=== PATIENT | male | born 1970 | race Caucasian/White ===

== ENCOUNTER 2021-11-13 09:34 | Emergency (ER) | payer SELFPAY ==
[2021-11-13 09:37] VITALS: BP 160/90; PULSE 88; RESP 16; TEMP 37.3; O2SAT 98
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
[2021-11-13] MEDS: Bacitracin 30 GM TUBE TP (10:18)
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
== END 2021-11-13 10:23 | disposition home or self-care (01) ==
PROVIDERS: Emergency Provider Registered Nurse Emergency
DX: T23.262A Burn of second degree of back of left hand, initial encounter (principal); T20.29XA Burn of second degree of multiple sites of head, face, and neck, initial encounter; X00.0XXA Exposure to flames in uncontrolled fire in building or structure, initial encounter
CPT/HCPCS: 99282; 99283

== ENCOUNTER 2024-11-26 15:40 | Inpatient (IN) | payer MEDICAID, SELFPAY ==
[2024-11-26] VITALS (39 sets, daily range): BP systolic 107–173; BP diastolic 69–91; PULSE 43–92; RESP 13–30; TEMP 36.6–38.7; O2SAT 93–99
--- NOTE | 2024-11-26 15:45 | DI.RAD_ITS ---
Exam(s) XR CHEST 2V PA LATERAL EXAM: XR CHEST 2V PA LATERAL CLINICAL HISTORY: fever, SOB. TECHNIQUE: 2D digital imaging was performed. COMPARISON: Prior chest x-ray March 2017 FINDINGS: 2 views: Heart size is normal. The mediastinum is not widened. Mild increased markings noted in the right lower lobe. No pleural effusions. IMPRESSION: Subtle increased markings right lower lobe. May indicate early infiltrate. There are no pleural eff usions. DATA REPOSITORY: RADIATION DOSE DELIVERED:
--- NOTE | 2024-11-26 16:00 | RT.EKG_ITS ---
APPROVED REPORT Exam: Resting ECG Reason for Exam: SOB Patient Location: E HR:86 bpm ECG Measurements Heart Rate 86 AXIS NV 168 P 65 QRSd 91 QRS 73 QT 335 T -75 QTc 400 Conclusion Sinus rhythm at a rate of 86 with wanderling leads and nonspecific ST change without acute ischemic c hange.
--- NOTE | 2024-11-26 16:05 | W.ED.GENAD ---
Discharge Plan Disposition Patient Disposition: Admit to [facility] Condition: Stable Discharge Details Chief Complaint: Dizzy/Sync Clinical Impression: Flu, Pneumonia Primary Care Provider: Nica,Local ED Provider: Maite Dale Home Meds and New Rx's Prescriptions: No Action No Known Home Meds HPI General Date/Time Provider Initiated Documentation: 11/26/24 15:51. HPI Narrative: The patient is a 54-year-old male with history of inguinal hernia who comes the emergency department for fever, cough, shortness of breath. The patient reports that he has been sick since Wednesday or Wednesday with vomiting and diarrhea. Reports multiple people around him has been sick with similar symptoms. Admits that he has had a fever with this also and has been taking NyQuil last dose was taken last night. Admits that his appetite is back to normal and in fact had a large meal earlier today. Admits that today he has had worsening symptom with shortness of breath and nonproductive cough so his sister called 911. Reports that he has chest pain when he is coughing with his ribs feeling like they are going to explode. He denies abdominal pain with this. Admits that he is a daily smoker. Per EMS the patient was febrile and tachycardic upon their arrival. The patient was found to have low oxygen saturation at 88% on room air. He was given a DuoNeb treatment and started on IV Solu-Medrol. Related Data Home Medications ?Medication ?Instructions ?Recorded ?Confirmed Unknown [No Known Home Meds] 11/13/21 11/26/24 Allergies Allergy/AdvReac Type Severity Reaction Status Date / Time meperidine (From Demerol) AdvReac Unknown Unverified 11/26/24 15:45 General Stated Complaint: Dizzy/Sync AIMEE: 2 Review of Systems Narrative: Review of systems are negative except as mentioned. Exam Const General: cooperative and no acute distress Orientation: alert, awake and oriented x3 HENMT Other: Oral mucosal membranes are moist. Eyes Other: Pupils are round, equal and reactive. Resp Other: Patient has equal lung sounds with mild expiratory wheezes bilaterally which clear upon coughing. Cardio Rate: regular rate Rhythm: regular rhythm Pulses: radial pulses present GI Palpation: soft and nontender Auscultation: normal bowel sounds Skin Other: Skin is warm and flushed but dry. Extrem Other: No calf tenderness or lower extremity edema noted bilaterally. Course Vital Signs Vital signs: Vital Signs Temperature 38.7 C H 11/26/24 15:32 Pulse 92 H 11/26/24 15:32 Respiratory Rate 28 H 11/26/24 15:32 Blood Pressure 173/81 H 11/26/24 15:32 Pulse Oximetry 94 11/26/24 15:32 Temperature 38.7 C H 11/26/24 15:32 Temperature Source Tympanic 11/26/24 15:32 Pulse 92 H 11/26/24 15:32 Respiratory Rate 28 H 11/26/24 15:32 Blood Pressure 173/81 H 11/26/24 15:32 Pulse Oximetry 94 11/26/24 15:32 Oxygen Delivery Method Room Air 11/26/24 15:32 Oxygen Flow Rate 0 11/26/24 15:32 End Tidal Co2 20 11/26/24 15:32 Lab/Test Results Lab/Test Results: 11/26/24 15:58 Blood Blood Culture - Pending 11/26/24 15:50 Blood Blood Culture - Pending Medical Decision Making Septic workup has been started on this patient. I talked the patient about Tylenol and ibuprofen but he declined the Tylenol but agreed to the ibuprofen. The patient's lactic acid was resulted and it was elevated so I ordered sepsis fluid bolus. The patient's blood counts are unremarkable. VBG is overall benign. Chemistry shows electrolyte abnormality and elevation of liver enzymes. The patient is getting IV fluids now and in regards to liver enzymes this is likely secondary to daily consumption of 6-8 beers. The patient tested positive for influenza A however because he is he has been symptomatic since Wednesday he is not appropriate for Tamiflu anymore. In the meantime supplemental oxygen has been weaned off and patient is resting comfortably on room air at 94%. Chest x-ray is back and there is concern for pneumonia so I started patient on IV antibiotics. Given overall clinical picture I informed the patient and his sisters of my recommendation for hospitalization at this point and they agree. Imaging Data Radiologic Study: Imaging: X-Ray (Chest x-ray) Radiologist's impression: V-rad: 1. There is parahilar peribronchial thickening, nonspecific but commonly seen in the setting of acute or chronic bronchitis and/or in the setting of a viral infection. 2. Moderate-sized region of increased opacity in the right lower lobe. Crowding of bronchial/vascular structures or an region of pulmonary consolidation could have this appearance. Clinical correlation is recommended to exclude a region of consolidated pneumonia or aspiration. ECG Data Attestation: I personally reviewed and interpreted this ECG (s) as follows: (Sinus rhythm at a rate of 86 with wanderling leads and nonspecific ST change without acute ischemic change.) Quality:SDOH Health Related Social Needs: No Data to Display PFSH All Active Problems (Updated 11/26/24 @ 20:01 by Maite Dale DO) Pneumonia (Acute) Flu (Acute) Inguinal hernia of right side with obstruction (Acute) Surgical History Repair of inguinal hernia WITH BOWEL RESECTION;04/12 Hemicolectomy RIGHT 04/12 Family History Mother No problems noted. Father No problems noted. Grandfather No problems noted. Grandfather No problems noted. Grandmother No problems noted. Grandmother No problems noted. Social History Smoking/Tobacco Use Status: Current every day Tobacco Type: cigarettes Smoking risk assessment performed?: Yes Alcohol Intake: current Alcohol Intake frequency: 0-2 drinks per day Alcohol type: beer Drug use: Never Substance use type: does not use Do you feel safe at home: Yes Do you feel safe in your relationship?: Yes
[2024-11-26 16:07] LABS: Abs Immature Grans 0.06 10^3/uL (0.0-0.06); Absolute Basophil Count 0.02 10^3/uL (0.0-0.2); Absolute Lymphocyte Count 0.59 10^3/uL (1.2-3.4); Absolute Monocyte Count 0.89 10^3/uL (0.1-0.8); Absolute Neutrophil Count 6.35 10^3/uL (1.2-6.7); Basophils % 0.3 %; HGB 14.6 g/dL (13.5-17.5); Immature Grans % 0.8 %; Lymphocytes % 7.5 %; MCH 31.4 pg (27.0-33.0); MCV 93 fL (80-95); MPV 8.9 fL (8.0-11.0); Monocytes % 11.3 %; Neutrophils % 80.1 %; Platelet Count 133 10^3/uL (130-400); RBC 4.65 10^6/uL (4.36-5.78); RDW 13.3 % (11.8-14.1); RDW-SD 45.5 fL; WBC 7.91 10^3/uL (4.4-10.8)
[2024-11-26 16:08] LABS: Lactate 4.8 mmol/L (<or=2.0)
[2024-11-26] MEDS: Ibuprofen 800 MG TAB PO (16:24)
[2024-11-26] MEDS: Normal Saline 1,000 ML 1000 ML IV ×2 (16:24→17:30)
[2024-11-26 16:25] LABS: BE (Venous) -5 mmol/L (-2-3); HCO3 (Venous) 21 mmol/L (23-28); O2 Sat (Venous) 53 %; TCO2 (Venous) 19 mmol/L (24-29); pCO2 (Venous) 37 mmHg (41-51); pH (Venous) 7.35 (7.31-7.41); pO2 (Venous) 31 mmHg
[2024-11-26 16:28] LABS: ALT 500 U/L (16-63); AST 580 U/L (15-37); Albumin 3.9 g/dL (3.4-5.0); Alkaline Phosphatase 147 U/L (46-116); BUN 11 mg/dL (7-18); Bilirubin, Total 0.28 mg/dL (0.2-1.0); CREATININE 1.1 mg/dL (0.70-1.30); Calcium 9.2 mg/dL (8.5-10.1); Chloride 89 mmol/L (98-107); Estimated GFR 79.28 (mL/min/1.73m2); Glucose 128 mg/dL (74-106); Potassium 3.2 mmol/L (3.5-5.1); Sodium 128 mmol/L (136-145); Total Protein 8.4 g/dL (6.4-8.2); Troponin I 22 ng/L (<or=76)
[2024-11-26 16:35] LABS: Procalcitonin 1.04 ng/mL
[2024-11-26 17:03] LABS: COVID-19 PCR Negative (Negative); Influenza A PCR Positive (Negative); Influenza B PCR Negative (Negative); RSV PCR Negative (Negative)
[2024-11-26 17:05] LABS: Source Nasopharynx
[2024-11-26 17:16] LABS: Troponin I 19 ng/L (<or=76)
--- NOTE | 2024-11-26 17:39 | DI.VRAD_ITS ---
PROCEDURE INFORMATION: Exam: XR Chest Exam date and time: 11/26/2024 4:21 PM Age: 54 years old Clinical indication: Fever and shortness of breath TECHNIQUE: Imaging protocol: Radiologic exam of the chest. Views: 2 views. COMPARISON: No relevant prior studies available. FINDINGS: Lungs: There is parahilar peribronchial thickening. There is increased opacity in the right lower lobe. Pleural spaces: No pleural effusion or pneumothorax is demonstrated. Heart/Mediastinum: The heart appears normal in size. Bones/joints: The visualized bony structures appear grossly intact, as seen. There are osteophytes along the thoracic spinal margin. IMPRESSION: 1. There is parahilar peribronchial thickening, nonspecific but commonly seen in the setting of acute or chronic bronchitis and/or in the setting of a viral infection. 2. Moderate-sized region of increased opacity in the right lower lobe. Crowding of bronchial/vascular structures or an region of pulmonary consolidation could have this appearance. Clinical correlation is recommended to exclude a region of consolidated pneumonia or aspiration. Dictated and Authenticated by: Vasquez Coe MD. Orderin Chito Arora MD
[2024-11-26] MEDS: cefTRIAXone 1 GM/50 ML BAG IVPB (18:25)
[2024-11-26 18:37] LABS: ETHANOL BLOOD 71.5 mg/dL (<10)
[2024-11-26 18:38] LABS: Bilirubin Negative (Negative); Blood Trace-lysed (Negative); Clarity Clear (Clear); Glucose Negative (Negative); Ketones Negative (Negative); Leukocyte Esterase Negative (Negative); Nitrite Negative (Negative); Urobilinogen 0.2 mg/dL (Up to 0.2); pH 5.5 (5-8)
--- NOTE | 2024-11-26 18:41 | W.PM.HP.N ---
Date of service: 11/26/24 Time of Service: 18:42 Assessment and Plan Assessment and plan (1) Flu: Status: Acute Assessment and plan: Flu, with possible bacterial superinfection. Will cover with Rocephin and Zithro, and check Legionella urinary antigen. As above, this far into the illness the Tamiflu will not be indicated. 1. Flu: supportive care 2. Pneumonia: dual abx as above 3. COPD: prn updrafts: 4. Hyponatremia: NS, trend Na 5. LFTS: probable EtOH, but question atypical respiratory infection (viz, Legionella); no signs synthetic dysfunction (normal albumen and bili): trend TAs 6. EtOH: high risk withdrawal. Will initiate Phenobarb protocol, check EtOH level History of Present Illness History of Present Illness Chief Complaint: cough Narrative: 54 male smoker, unvaccinated against flu, h/o EtOH abuse, multiple family members sick -- here with five days of cough, nausea, diarrhea, SOB. EMS report o2 sat 88% in field, received Solumedrol and Duoneb. Here in ER findings of note for o2 sats mid 90s RA, temp to 38.7, + flu swab, CXR perihilar peribronchial thickening (?viral) plus possible RLL infiltrate. Lactate 4.8, Na 128, TAs 500s with normal Bili. Patient given IVF, Rocephin and Zithro. Given that he was five days out he was not started on Tamiflu. I was asked to blanca for admission. Patient states he drinks 10-12 beer/day, last drink around lunch time. States he has had withdrawal in past, including possible seizures and possible DTs (though he does not seem to be quite sure what either of these are). States he is feeling improved though not back to baseline. Review of Systems Narrative: per HPI PFSH All Active Problems (Updated 11/26/24 @ 18:50 by Josesito López MD) Flu (Acute) Inguinal hernia of right side with obstruction (Acute) Surgical History Repair of inguinal hernia WITH BOWEL RESECTION;04/12 Hemicolectomy RIGHT 04/12 Family History Mother No problems noted. Father No problems noted. Grandfather No problems noted. Grandfather No problems noted. Grandmother No problems noted. Grandmother No problems noted. Social History Smoking/Tobacco Use Status: Current every day Tobacco Type: cigarettes Smoking risk assessment performed?: Yes Alcohol Intake: current Alcohol Intake frequency: 0-2 drinks per day Alcohol type: beer Drug use: Never Substance use type: does not use Do you feel safe at home: Yes Do you feel safe in your relationship?: Yes Meds Allergies and Home Medications Allergies Allergy/AdvReac Type Severity Reaction Status Date / Time meperidine (From Demerol) AdvReac Unknown Unverified 11/26/24 15:45 Home Medications ?Medication ?Instructions ?Recorded ?Confirmed ?Type Unknown [No Known Home Meds] 11/13/21 11/26/24 History Exam Narrative Exam Narrative: 173/81, 92, 38.7 max (currently afebrile), 16, 94% RA. HEENT profusely sweating on forehead; neck supple; lungs few scattered wheeze; heart RRR; abdomen soft and NT w/o HSM' extremities w/o edema; neuro Ox3, resting tremor, moves all 4s Results Labs 11/26/24 15:50 11/26/24 15:50 Labs: Laboratory Results - last 24 hr 11/26/24 11/26/24 11/26/24 15:32 15:50 16:20 WBC 7.91 RBC 4.65 Hgb 14.6 Hct 43.0 MCV 93 MCH 31.4 MCHC 34.0 RDW 13.3 Plt Count 133 MPV 8.9 Immature Gran % 0.8 Neutrophils % 80.1 Lymphocytes % 7.5 Monocytes % 11.3 Eosinophils % 0.0 Basophils % 0.3 Nucleated RBC % 0.0 Absolute Neutrophils 6.35 Absolute Lymphocytes 0.59 L Absolute Monocytes 0.89 H Absolute Eosinophils 0.00 Absolute Basophils 0.02 VBG pH 7.35 VBG pCO2 37 L VBG pO2 31 VBG HCO3 21 L VBG Total CO2 19 L VBG O2 Saturation 53 VBG Base Excess -5 L VBG Lactate 4.8 H* Sodium 128 L Potassium 3.2 L Chloride 89 L Carbon Dioxide 21.0 Anion Gap 18.0 H BUN 11 Creatinine 1.1 Est GFR (CKD-EPI 2020) 79.28 Glucose 128 H Calcium 9.2 Total Bilirubin 0.28 AST 580 H ALT 500 H Alkaline Phosphatase 147 H Troponin I 22 Total Protein 8.4 H Albumin 3.9 Procalcitonin 1.04 Urine Color Urine Clarity Urine pH Ur Specific [place] Urine Protein Urine Ketones Urine Blood Urine Nitrite Urine Bilirubin Urine Urobilinogen Ur Leukocyte Esterase Urine Glucose COVID-19 Source Nasopharynx SARS-CoV-2 (PCR) Negative Influenza Type A (PCR) Positive A Influenza Type B (PCR) Negative RSV (PCR) Negative 11/26/24 11/26/24 16:50 18:30 WBC RBC Hgb Hct MCV MCH MCHC RDW Plt Count MPV Immature Gran % Neutrophils % Lymphocytes % Monocytes % Eosinophils % Basophils % Nucleated RBC % Absolute Neutrophils Absolute Lymphocytes Absolute Monocytes Absolute Eosinophils Absolute Basophils VBG pH VBG pCO2 VBG pO2 VBG HCO3 VBG Total CO2 VBG O2 Saturation VBG Base Excess VBG Lactate Sodium Potassium Chloride Carbon Dioxide Anion Gap BUN Creatinine Est GFR (CKD-EPI 2020) Glucose Calcium Total Bilirubin AST ALT Alkaline Phosphatase Troponin I 19 Total Protein Albumin Procalcitonin Urine Color Yellow Urine Clarity Clear Urine pH 5.5 Ur Specific [place] 1.010 Urine Protein 100 H Urine Ketones Negative Urine Blood Trace-lysed H Urine Nitrite Negative Urine Bilirubin Negative Urine Urobilinogen 0.2 Ur Leukocyte Esterase Negative Urine Glucose Negative COVID-19 Source SARS-CoV-2 (PCR) Influenza Type A (PCR) Influenza Type B (PCR) RSV (PCR) Last Vital Signs Temp 38.7 C H 11/26/24 16:24 Pulse 92 H 11/26/24 15:32 Resp 16 11/26/24 18:22 BP 173/81 H 11/26/24 15:32 Pulse Ox 94 11/26/24 15:32 PAWSS Have you Been Recently Intoxicated or Drunk Within the Last 30 days?: No Have you Ever Experienced Previous Episodes of Alcohol Withdrawal?: No Have you ever Experienced Withdrawal Seizures?: No Have you ever Experienced Delirium Tremens(DT)s?: No Have you ever undergone Alcohol Rehabilitation Treatment (i.e, inpt ot outpatient treatment programs)?: No Have you ever Experienced Blackouts?: No Have you ever Combined Alcohol with other Downers within the last 90 days?: No Have you ever Combined Alcohol with any other Substance of Abuse during the last 90 days?: No Result: 0 Time Spent Time spent with Patient: 55-74 minutes Time was spent: preparing to see the patient(eg.review tests), obtaining and/or reviewing separately otained hiistory, ordering medications,tests, procedures, referring, communicating with other health aged or disabled care worker and indepentently interpreting results
[2024-11-26 18:51] LABS: Bacteria Rare HPF (Negative); C & S Indicated? No; Casts 0-2 Hyaline LPF (Negative); Crystals Negative HPF (Negative); Epithelial Cells Rare HPF (Negative); Mucus Negative (Negative); RBC 0-2 HPF (0-2); WBC 0-2 HPF (0-5)
[2024-11-26] MEDS: AZITHROMYCIN 500 MG in Normal Saline 250 ML 250 MG IVPB (18:59)
[2024-11-26 19:05] LABS: Lactate 1.6 mmol/L (<or=2.0)
[2024-11-26 19:28] LABS: Troponin I 20 ng/L (<or=76)
--- NOTE | 2024-11-26 20:11 | W.PC.ACHO ---
Registration Status: Primary Language: Preferred Language: ED Information & Data Chief Complaint Dizzy/Sync 11/26/24 16:07 Triage Note after lunch became lethargic 11/26/24 15:32 and confused and dizzy, c/o diff breathing, N/V/D x1 wk 88% RA, 101.4, increased work of breathing, wheezes, EMS arrival received 125 solu, Duoneb x2, NS Fluids started. (Last Reviewed 11/26/24 @ 18:48 by Josesito López MD) Repair of inguinal hernia Hemicolectomy Most Recent Vital Signs Temperature 36.9 C 11/26/24 18:41 Temperature Source Oral 11/26/24 18:41 Pulse 62 11/26/24 20:00 Pulse 61 11/26/24 20:00 Respiratory Rate 17 11/26/24 20:00 Respiratory Effort Normal, Non-Labored 11/26/24 18:22 Respiratory Depth Normal 11/26/24 18:22 Respiratory Pattern Normal 11/26/24 19:05 Blood Pressure 156/71 H 11/26/24 15:46 Blood Pressure Mean 96 11/26/24 15:46 Pulse Oximetry 99 11/26/24 20:00 Respiratory End-tidal CO2 24 11/26/24 17:10 Oxygen Delivery Method Room Air 11/26/24 15:32 Oxygen Flow Rate 0 11/26/24 15:32 End Tidal Co2 20 11/26/24 15:32 Allergies meperidine (From Demerol) Adverse Reaction (Unverified 11/26/24 15:45) Unknown unknown Precautions Isolation PUI 11/26/24 16:06 IV IV Catheter Type [Right Peripheral IV Forearm] IV Catheter Gauge [Right 20 Forearm] Diet Orders Category Date Time Status Regular/Normal [DIET] Nutrition 11/27/24 Breakfast Ordered Diagnostics 11/26/24 11/26/24 11/26/24 Range/Units 18:59 18:30 16:50 WBC (4.4-10.8) 10^3/uL RBC (4.36-5.78) 10^6/uL Hgb (13.5-17.5) g/dL Hct (40.0-50.0) % MCV (80-95) fL MCH (27.0-33.0) pg MCHC (32.0-36.0) % RDW (11.8-14.1) % Plt Count (130-400) 10^3/uL MPV (8.0-11.0) fL Immature Gran % % Neutrophils % % Lymphocytes % % Monocytes % % Eosinophils % % Basophils % % Nucleated RBC % (0.0-0.3) % Absolute Neutrophils (1.2-6.7) 10^3/uL Absolute Lymphocytes (1.2-3.4) 10^3/uL Absolute Monocytes (0.1-0.8) 10^3/uL Absolute Eosinophils (0.0-0.7) 10^3/uL Absolute Basophils (0.0-0.2) 10^3/uL VBG pH (7.31-7.41) VBG pCO2 (41-51) mmHg VBG pO2 mmHg VBG HCO3 (23-28) mmol/L VBG Total CO2 (24-29) mmol/L VBG O2 Saturation % VBG Base Excess (-2-3) mmol/L VBG Lactate 1.6 (<or=2.0) mmol/L Sodium (136-145) mmol/L Potassium (3.5-5.1) mmol/L Chloride (98-107) mmol/L Carbon Dioxide (21.0-32.0) mmol/L Anion Gap (3-11) mmol/L BUN (7-18) mg/dL Creatinine (0.70-1.30) mg/dL Est GFR (CKD-EPI 2020) (mL/min/1.73m2) Glucose (74-106) mg/dL Calcium (8.5-10.1) mg/dL Total Bilirubin (0.2-1.0) mg/dL AST (15-37) U/L ALT (16-63) U/L Alkaline Phosphatase (46-116) U/L Troponin I 20 19 (<or=76) ng/L Total Protein (6.4-8.2) g/dL Albumin (3.4-5.0) g/dL Procalcitonin ng/mL Urine Color Yellow (Yellow) Urine Clarity Clear (Clear) Urine pH 5.5 (5-8) Ur Specific [place] 1.010 (1.005-1.025) Urine Protein 100 H (Neg-Trace) mg/dL Urine Ketones Negative (Negative) mg/dL Urine Blood Trace-lysed H (Negative) Urine Nitrite Negative (Negative) Urine Bilirubin Negative (Negative) Urine Urobilinogen 0.2 (Up to 0.2) mg/dL Ur Leukocyte Esterase Negative (Negative) Urine RBC 0-2 (0-2) HPF Urine WBC 0-2 (0-5) HPF Ur Epithelial Cells Rare (Negative) HPF Urine Crystals Negative (Negative) HPF Urine Bacteria Rare (Negative) HPF Urine Casts 0-2 Hyaline (Negative) LPF Urine Mucus Negative (Negative) Ur Culture Indicated? No Urine Glucose Negative (Negative) mg/dL Ethyl Alcohol (<10) mg/dL COVID-19 Source SARS-CoV-2 (PCR) (Negative) Influenza Type A (PCR) (Negative) Influenza Type B (PCR) (Negative) RSV (PCR) (Negative) 11/26/24 11/26/24 11/26/24 Range/Units 16:20 15:50 15:32 WBC 7.91 (4.4-10.8) 10^3/uL RBC 4.65 (4.36-5.78) 10^6/uL Hgb 14.6 (13.5-17.5) g/dL Hct 43.0 (40.0-50.0) % MCV 93 (80-95) fL MCH 31.4 (27.0-33.0) pg MCHC 34.0 (32.0-36.0) % RDW 13.3 (11.8-14.1) % Plt Count 133 (130-400) 10^3/uL MPV 8.9 (8.0-11.0) fL Immature Gran % 0.8 % Neutrophils % 80.1 % Lymphocytes % 7.5 % Monocytes % 11.3 % Eosinophils % 0.0 % Basophils % 0.3 % Nucleated RBC % 0.0 (0.0-0.3) % Absolute Neutrophils 6.35 (1.2-6.7) 10^3/uL Absolute Lymphocytes 0.59 L (1.2-3.4) 10^3/uL Absolute Monocytes 0.89 H (0.1-0.8) 10^3/uL Absolute Eosinophils 0.00 (0.0-0.7) 10^3/uL Absolute Basophils 0.02 (0.0-0.2) 10^3/uL VBG pH 7.35 (7.31-7.41) VBG pCO2 37 L (41-51) mmHg VBG pO2 31 mmHg VBG HCO3 21 L (23-28) mmol/L VBG Total CO2 19 L (24-29) mmol/L VBG O2 Saturation 53 % VBG Base Excess -5 L (-2-3) mmol/L VBG Lactate 4.8 H* (<or=2.0) mmol/L Sodium 128 L (136-145) mmol/L Potassium 3.2 L (3.5-5.1) mmol/L Chloride 89 L (98-107) mmol/L Carbon Dioxide 21.0 (21.0-32.0) mmol/L Anion Gap 18.0 H (3-11) mmol/L BUN 11 (7-18) mg/dL Creatinine 1.1 (0.70-1.30) mg/dL Est GFR (CKD-EPI 2020) 79.28 (mL/min/1.73m2) Glucose 128 H (74-106) mg/dL Calcium 9.2 (8.5-10.1) mg/dL Total Bilirubin 0.28 (0.2-1.0) mg/dL AST 580 H (15-37) U/L ALT 500 H (16-63) U/L Alkaline Phosphatase 147 H (46-116) U/L Troponin I 22 (<or=76) ng/L Total Protein 8.4 H (6.4-8.2) g/dL Albumin 3.9 (3.4-5.0) g/dL Procalcitonin 1.04 ng/mL Urine Color (Yellow) Urine Clarity (Clear) Urine pH (5-8) Ur Specific [place] (1.005-1.025) Urine Protein (Neg-Trace) mg/dL Urine Ketones (Negative) mg/dL Urine Blood (Negative) Urine Nitrite (Negative) Urine Bilirubin (Negative) Urine Urobilinogen (Up to 0.2) mg/dL Ur Leukocyte Esterase (Negative) Urine RBC (0-2) HPF Urine WBC (0-5) HPF Ur Epithelial Cells (Negative) HPF Urine Crystals (Negative) HPF Urine Bacteria (Negative) HPF Urine Casts (Negative) LPF Urine Mucus (Negative) Ur Culture Indicated? Urine Glucose (Negative) mg/dL Ethyl Alcohol 71.5 H (<10) mg/dL COVID-19 Source Nasopharynx SARS-CoV-2 (PCR) Negative (Negative) Influenza Type A (PCR) Positive A (Negative) Influenza Type B (PCR) Negative (Negative) RSV (PCR) Negative (Negative) 11/26/24 15:58 Blood Culture - Pending Blood 11/26/24 15:50 Blood Culture - Pending Blood Intake and Output - 24 Hour Total 11/26/24 15:26 thru 11/26/24 19:00 Intake Total 2049 Balance 2049 Weight 71.1 kg Intake: IV 2049 Falls Risk Assessment History of Falls No History 11/26/24 16:07 Fall Total Score 0 11/26/24 16:07 Level of Risk Standard/Low Risk 11/26/24 16:07 Problems (Last Reviewed 11/26/24 @ 18:48 by Josesito López MD) Flu (Acute) v v v v v v v v v Sending and/or Receiving Nurses: Please use comment section below to note any information pertinent to the patient hand-off not included above. Information / Comments: Requested second IV be placed before presenting to ICU. All questions answered. Report received from:Alyssa Nice RN
[2024-11-26] MEDS: POTASSIUM CHLORIDE/0.9% NACL 1,000 ML 100 MEQ IV (20:57)
[2024-11-27] VITALS (22 sets, daily range): BP systolic 100–157; BP diastolic 67–120; PULSE 44–108; RESP 14–27; TEMP 36.4–37.6; O2SAT 92–98
[2024-11-27 06:51] LABS: ALT 325 U/L (16-63); AST 281 U/L (15-37); Anion Gap 9.3 mmol/L (3-11); BUN 11 mg/dL (7-18); CO2 27.7 mmol/L (21.0-32.0); CREATININE 0.8 mg/dL (0.70-1.30); Calcium 8.6 mg/dL (8.5-10.1); Chloride 103 mmol/L (98-107); Estimated GFR 104.51 (mL/min/1.73m2); Glucose 154 mg/dL (74-106)
[2024-11-27 07:31] LABS: Potassium 4.9 mmol/L (3.5-5.1); Sodium 140 mmol/L (136-145)
--- NOTE | 2024-11-27 08:44 | W.NUTRFU ---
Date of service: 11/27/24 Time of Service: 08:55 Nutrition Note NOTE: 54yo male recently admitted with PNA and flu. Hx of COPD, etoh intake, current tobacco use. weight history pretty consistently 62-64kg over the last 3 years. Electrolyte labs wnl today (no mag or phos labs). Fasting glucose at 154 this morning. total protein high at 8.4 with normal albumin yesterday. ordered for regular diet with normal consistencies. Will monitor po intake as he has only had one meal offered since admission. BMI currently wnl - no need for ONS at this time. Nutrition Dx: increased nutrition needs secondary to current etoh usage and current tobacco use (elevating need for anitoxidant nutrients as well as folate, b12, thiamine, magnesium) Intervention: Suggest vitamin D lab and supplementation if low due to it's role in immune function. Suggest 200mg zinc sulfate to provide ~40mg elemental elemental zinc for immune function Suggest 500mg vitamin C BID due to current tobacco use. Suggest phos and mag labs. Monitoring: po intake, nutrition-related labs, weight Time Spent in Nutritional Counseling and Treatment: 0
[2024-11-27] MEDS: POTASSIUM CHLORIDE/0.9% NACL 1,000 ML 100 MEQ IV (08:48)
--- NOTE | 2024-11-27 09:20 | PDOC.CMIN ---
Date of service: 11/27/24 Time of Service: 09:20 Care Management Initial Assmt Initial Assessment Reason for Hospitalization: flu, pneumonia Functional Status/Living Situation Patient Presentation: Syed was brought to the ED via EMS yesterday evening, with c/o weakness, fever, SOB. He had also been sick for a few days with vomiting and diarrhea. Syed was sitting up in the bed when CM met with him today. He was very pleasant. He was not requiring any oxygen, and stated that he was feeling much better than he did when he first came in. 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 Syed is agreeable to a referral to [employer] for help with applying for Medicaid. Referral was sent by this RN. Syed feels well supported by his sisters and cousins, who are close knit. Syed lives in a camper in [place]. Town of Residence: [place] Resides with: Alone Significant Other/Family: Local (sisters, Eneida and Ashley, extended family of cousins) Natural Supports: family Employment Status: Employed (does odd jobs) Medications Medication Management: No Issues/Barriers identified (not on any home meds) Advance Directives Advance Directives: Do you have an Advance Directive: N 04/09/17 03:12 AD On File at [facility]: N 04/09/17 03:12 Date Asked 11/26/24 11/26/24 16:30 AD Date Reviewed COLST On File at [facility] COLST Date Scanned Code Status Resuscitation Status Full Code Insurance Coverage/Financial Issues Insurance: Referral to [facility]. Patient is without insurance Care Team Visit Care Team Role Provider Type Nasir Jimenez MD [facility] STAFF PHYSICIAN [facility] No Primary Care Provider NON-[facility] STAFF PHYSICIAN Maite Dale DO Emergency Provider [facility] STAFF PHYSICIAN Josesito López MD Admit Provider [facility] STAFF PHYSICIAN Attending Provider Other: T-Doc in [facility] Discharge Potential Discharge Needs: Other (establish with local PCP - Vidya Beadr, RESERVES CLERK at [facility], is the t-doc from Syed's admission) Anticipated Barriers to Discharge: None Identified Patient/Family Education Needs: Review discharge instructions, discuss Ask Me Three Transportation: Private vehicle (Syed stated that his sister will pick him up when needed) Plan: Anticipate that Syed will be discharged home with no new services once medically stable. He will f/u with his new PCP at an appointment made for him prior to discharge, and continue per his plan of care. Syed will f/u with community connections. Syed will transport home with family. CM will continue to follow. Social Determinants of Health Screening Will the Patient Participate in the Screening?: Declined to provide PFSH All Active Problems (Updated 11/26/24 @ 20:24 by MERRY GAN) Pneumonia (Acute) Flu (Acute) Inguinal hernia of right side with obstruction (Acute) Surgical History Repair of inguinal hernia WITH BOWEL RESECTION;04/12 Hemicolectomy RIGHT 04/12 Family History Mother No problems noted. Father No problems noted. Grandfather No problems noted. Grandfather No problems noted. Grandmother No problems noted. Grandmother No problems noted. Social History Smoking/Tobacco Use Status: Current every day Tobacco Type: cigarettes Smoking risk assessment performed?: Yes Alcohol Intake: current Alcohol Intake frequency: 0-2 drinks per day Alcohol type: beer Drug use: Never Substance use type: does not use Housing: other Do you feel safe at home: Yes Do you feel safe in your relationship?: Yes Readmission Within the Past 30 Days Yes or No: No
--- NOTE | 2024-11-27 16:17 | W.PM.PROGNOT ---
Date of Service Date of service: 11/27/24 Time of Service: 08:45 Assessment and Plan Assessment and plan (1) Pneumonia: Status: Acute Assessment and plan: Focal presumed bacterial pnuemonia complicating influenza Continue ceftriaxone and azithromycin. (2) Flu: Status: Acute Assessment and plan: Presented late, so oseltamivir not started. He is imrpoving so will not start now. Supportive care. (3) Hyponatremia: Status: Acute Assessment and plan: Secondary to dehydration and lung infection and alcohol. Improved with hydration, now normal. Can stop IVF. (4) Hypokalemia: Status: Acute Assessment and plan: Resolved. (5) Elevated transaminase level: Status: Acute Assessment and plan: Secondary to acute infection and alcohol. No signs of liver failure or cirrhosis. Improving. Follow. (6) Alcohol withdrawal: Status: Acute Assessment and plan: Getting phenobarbital protocol. Stable. Can make med/surg status. (7) Alcohol use disorder: Status: Acute Assessment and plan: Discussed motivation to quit. he is resistant to peer support, rehab. Will consider other options. (8) DVT prophylaxis: Status: Acute Assessment and plan: enoxaparin Subjective Subjective Patient reports: no new complaints and tolerating a regular diet; denies nausea, vomiting or fever Interval history since last seen: Started on phenobarbital protocol, got bolus but prns not ordered He feels okay. Has some shortness of breath and cough, but a little better. He is eating, not feverish this morning. No abdominal pain. He denies a history of seizures. he would like to cut back alcohol. He lives alone in trailer in [place]. Exam Narrative Exam Narrative: Gen: plethoric, but sitting up and NAD, alert and oriented, no hallucinations. HEENT: No icterus, MMM. Lungs: few scattered wheeze, no rales, normal effort. heart RRR no m/g/r. abdomen soft and NT w/o HSM' extremities w/o edema; neuro CN intact, symmetric fine tremor at rest and with activity, moves all 4s Objective Last Vital Signs Temp 36.9 C 11/27/24 04:01 Pulse 66 11/27/24 14:01 Resp 16 11/27/24 14:01 BP 116/74 11/27/24 14:01 Pulse Ox 97 11/27/24 14:01 Laboratory Results - last 24 hr 11/26/24 11/26/24 11/26/24 15:32 15:50 16:20 VBG pH 7.35 VBG pCO2 37 L VBG pO2 31 VBG HCO3 21 L VBG Total CO2 19 L VBG O2 Saturation 53 VBG Base Excess -5 L VBG Lactate Sodium 128 L Potassium 3.2 L Chloride 89 L Carbon Dioxide 21.0 Anion Gap 18.0 H BUN 11 Creatinine 1.1 Est GFR (CKD-EPI 2020) 79.28 Glucose 128 H Calcium 9.2 Total Bilirubin 0.28 AST 580 H ALT 500 H Alkaline Phosphatase 147 H Troponin I 22 Total Protein 8.4 H Albumin 3.9 Procalcitonin 1.04 Urine Color Urine Clarity Urine pH Ur Specific [place] Urine Protein Urine Ketones Urine Blood Urine Nitrite Urine Bilirubin Urine Urobilinogen Ur Leukocyte Esterase Urine RBC Urine WBC Ur Epithelial Cells Urine Crystals Urine Bacteria Urine Casts Urine Mucus Ur Culture Indicated? Urine Glucose Ethyl Alcohol 71.5 H COVID-19 Source Nasopharynx SARS-CoV-2 (PCR) Negative Influenza Type A (PCR) Positive A Influenza Type B (PCR) Negative RSV (PCR) Negative 11/26/24 11/26/24 11/26/24 16:50 18:30 18:59 VBG pH VBG pCO2 VBG pO2 VBG HCO3 VBG Total CO2 VBG O2 Saturation VBG Base Excess VBG Lactate 1.6 Sodium Potassium Chloride Carbon Dioxide Anion Gap BUN Creatinine Est GFR (CKD-EPI 2020) Glucose Calcium Total Bilirubin AST ALT Alkaline Phosphatase Troponin I 19 20 Total Protein Albumin Procalcitonin Urine Color Yellow Urine Clarity Clear Urine pH 5.5 Ur Specific [place] 1.010 Urine Protein 100 H Urine Ketones Negative Urine Blood Trace-lysed H Urine Nitrite Negative Urine Bilirubin Negative Urine Urobilinogen 0.2 Ur Leukocyte Esterase Negative Urine RBC 0-2 Urine WBC 0-2 Ur Epithelial Cells Rare Urine Crystals Negative Urine Bacteria Rare Urine Casts 0-2 Hyaline Urine Mucus Negative Ur Culture Indicated? No Urine Glucose Negative Ethyl Alcohol COVID-19 Source SARS-CoV-2 (PCR) Influenza Type A (PCR) Influenza Type B (PCR) RSV (PCR) 11/27/24 05:38 VBG pH VBG pCO2 VBG pO2 VBG HCO3 VBG Total CO2 VBG O2 Saturation VBG Base Excess VBG Lactate Sodium 140 D Potassium 4.9 D Chloride 103 Carbon Dioxide 27.7 Anion Gap 9.3 BUN 11 Creatinine 0.8 Est GFR (CKD-EPI 2020) 104.51 Glucose 154 H Calcium 8.6 Total Bilirubin AST 281 H ALT 325 H Alkaline Phosphatase Troponin I Total Protein Albumin Procalcitonin Urine Color Urine Clarity Urine pH Ur Specific [place] Urine Protein Urine Ketones Urine Blood Urine Nitrite Urine Bilirubin Urine Urobilinogen Ur Leukocyte Esterase Urine RBC Urine WBC Ur Epithelial Cells Urine Crystals Urine Bacteria Urine Casts Urine Mucus Ur Culture Indicated? Urine Glucose Ethyl Alcohol COVID-19 Source SARS-CoV-2 (PCR) Influenza Type A (PCR) Influenza Type B (PCR) RSV (PCR) PAWSS Have you Been Recently Intoxicated or Drunk Within the Last 30 days?: No Have you Ever Experienced Previous Episodes of Alcohol Withdrawal?: No Have you ever Experienced Withdrawal Seizures?: No Have you ever Experienced Delirium Tremens(DT)s?: No Have you ever undergone Alcohol Rehabilitation Treatment (i.e, inpt ot outpatient treatment programs)?: No Have you ever Experienced Blackouts?: No Have you ever Combined Alcohol with other Downers within the last 90 days?: No Have you ever Combined Alcohol with any other Substance of Abuse during the last 90 days?: No Result: 0 Time Spent with Patient Time Spent with Patient: >50 minutes Time was spent: preparing to see the patient(eg.review tests), obtaining and/or reviewing separately otained hiistory, ordering medications,tests, procedures, referring, communicating with other health direct care professional, indepentently interpreting results, counseling the patient and care coordination
[2024-11-27] MEDS: Enoxaparin 40 MG/0.4 ML SYR SC (16:51)
[2024-11-27] MEDS: cefTRIAXone 1 GM/50 ML BAG IVPB (17:07)
[2024-11-27 18:47] LABS: Legionella Ag Detection Urine Negative (Negative)
[2024-11-27] MEDS: Normal Saline Flush 10 ML SYR (19:25)
[2024-11-27] MEDS: AZITHROMYCIN 250 MG in Normal Saline 250 ML IVPB (19:28)
[2024-11-28] VITALS (9 sets, daily range): BP systolic 111–161; BP diastolic 76–97; PULSE 68–91; RESP 17–27; TEMP 36.4–38.3; O2SAT 92–96
[2024-11-28] MEDS: PHENobarbital 130 MG/ML VIAL IVP (01:56)
[2024-11-28] MEDS: Nicotine 21 MG/24 HR PATCH TD ×2 (02:10→08:38)
[2024-11-28] MEDS: Acetaminophen 500 MG TAB 1000 MG PO ×2 (02:10→09:40)
[2024-11-28] MEDS: Normal Saline Flush 10 ML SYR ×2 (02:15→08:40)
[2024-11-28 07:02] LABS: Abs Immature Grans 0.04 10^3/uL (0.0-0.06); Absolute Basophil Count 0.01 10^3/uL (0.0-0.2); Absolute Lymphocyte Count 1.18 10^3/uL (1.2-3.4); Absolute Monocyte Count 0.79 10^3/uL (0.1-0.8); Absolute Neutrophil Count 6.21 10^3/uL (1.2-6.7); Basophils % 0.1 %; HGB 12.6 g/dL (13.5-17.5); Immature Grans % 0.5 %; Lymphocytes % 14.3 %; MCHC 33.2 % (32.0-36.0); MCV 93 fL (80-95); MPV 10.4 fL (8.0-11.0); Monocytes % 9.6 %; Neutrophils % 75.5 %; Platelet Count 123 10^3/uL (130-400); RBC 4.07 10^6/uL (4.36-5.78); RDW 13.6 % (11.8-14.1); RDW-SD 46.5 fL; WBC 8.23 10^3/uL (4.4-10.8)
[2024-11-28 07:15] LABS: ALT 216 U/L (16-63); AST 138 U/L (15-37); Albumin 2.8 g/dL (3.4-5.0); Alkaline Phosphatase 106 U/L (46-116); Anion Gap 10.8 mmol/L (3-11); BUN 12 mg/dL (7-18); Bilirubin, Direct 0.1 mg/dL (0.0-0.2); Bilirubin, Total 0.28 mg/dL (0.2-1.0); CO2 25.2 mmol/L (21.0-32.0); CREATININE 0.9 mg/dL (0.70-1.30); Calcium 8.6 mg/dL (8.5-10.1); Chloride 98 mmol/L (98-107); Estimated GFR 100.86 (mL/min/1.73m2); Glucose 91 mg/dL (74-106); Magnesium 1.5 mg/dL (1.8-2.4); Sodium 134 mmol/L (136-145); Total Protein 6.3 g/dL (6.4-8.2)
[2024-11-28 07:24] LABS: Potassium 3.7 mmol/L (3.5-5.1)
[2024-11-28] MEDS: Multivitamin TAB 1 TAB PO (08:39)
[2024-11-28] MEDS: Folic Acid 1 MG TAB PO (08:39)
[2024-11-28] MEDS: Thiamine 100 MG TAB PO (08:39)
[2024-11-28] MEDS: MAGNESIUM SULFATE 2 GM/50 ML BAG IV_INF (10:12)
[2024-11-28] MEDS: Normal Saline Flush 10 ML SYR IVP (12:04)
--- NOTE | 2024-11-28 12:51 | DSE_ITS ---
Date of service: 11/28/24 Time of Service: 12:52 DS: Diagnosis Discharge Diagnosis (1) Pneumonia: Status: Acute (2) Flu: Status: Acute (3) Hyponatremia: Status: Acute (4) Hypokalemia: Status: Acute (5) Elevated transaminase level: Status: Acute (6) Alcohol withdrawal: Status: Acute (7) Alcohol use disorder: Status: Acute Discharge Plan Disposition Patient Disposition: Home Condition: Stable Discharge Details Reason For Visit: Flu, Pneumonia, Alcohol Withdrawal Admit Date/Time: 11/26/24 19:05 Admit Provider: Josesito López Attending Provider: Josesito López [facility]: 54 yo with alcohol use disorder and daily drinking, smoker, who was admitted after 5-6 days of cough, nausea, loose stools, and shortness of breath. He was initially 88% on room air but oxygen stabilized in the 90s on room in the emergency room. He was influenza positive, and chest x-ray revealed a focal pneumonia. Due to being late in his presentation, oseltamivir was not given. He was treated with ceftriaxone and azithromycin for pneumonia and his symptoms improved. He was discharged to complete a 5 day course. He was treated with phenobarbital protocol for alcohol withdrawal but his withdrawal syndrome was not severe. Recovery resources were reviewed and he was given information. His sister was present and supportive. His neice is in local company intermodal truck driver recovery in . He was prescribed naltrexone at discharge to help. His AST and ALT were in the 500s on admission. His bilirubin and albumin were normal. The AST and ALT decreased, suggesting alcohol was the cause. His platelets were borderline low, raising concern for advanced fibrosis/cirrhosis. He should have repeat CBC/CMP off alcohol with FIB-4 score, if still concerning for fibrosis he should have elastography (Fibroscan). Viral screens should also be done on follow up. potassium and magnesium were supplemented. Sodium was low and improved with hydration. He used nicotene patches and was interested in quitting. Resourced discussed. Will get OTC for now as no insurance. Referral to [facility] was placed to help with insurance and resources. He will need a PCP. He should have hospital follow up in 1-2 weeks. He had loose stools likely a/w influenza, but c. diff ordered prior to discharge. Home Meds and New Rx's Prescriptions: New multivitamin [Multiple Vitamins] Tablet 1 tab PO QAM Qty: 0 0RF nicotine 21 mg/24 hr Patch 24 Hour 21 mg transdermal DAILY Qty: 0 0RF amoxicillin-pot clavulanate 875-125 mg tablet 1 tab PO BID 2 Days Qty: 4 0RF azithromycin 250 mg tablet 250 mg PO DAILY 2 Days Qty: 2 0RF Rx Instructions: start on 11/29 naltrexone 50 mg tablet 50 mg PO DAILY Qty: 30 2RF Discharge Instructions Referrals: [facility] [Provider Group] - 12/14/24 1:30 pm (Please arrive 15 minutes early to the appointment. Appointment with Dr. Amezcua) Activity:: Activity as Tolerated Equipment/Supplies:: No Equipment Needed Diet:: As Tolerated Discharge Orders Discharge Orders: Discharge Order (Routine); Ordered 11/28/24 Ordered By: Nasir Jimenez Discharge Data Discharge Date/Time-TO BE ENTERED AT DEPARTURE: 11/28/24 14:05 DS: Summary Time Spent with Patient providing and/or coordinating discharge services: Greater than 30 minutes Status at Discharge Functional status at discharge: independent ambulation Overall status at discharge: patient is back to baseline Mental Status: mental status grossly normal Speech and Movement: speech and movement normal Mood: congruent mood Affect: normal affect Quality:SDOH Health Related Social Needs: No Data to Display Exam Narrative Exam Narrative: Gen: plethoric, but sitting up and NAD, alert and oriented, no hallucinations. HEENT: No icterus, MMM. Lungs: CTAB, no rales, normal effort. heart RRR no m/g/r. abdomen soft and NT w/o HSM' extremities w/o edema; neuro: mild symmetric fine tremor at rest and with activity Psych Mental Status: mental status grossly normal Speech and Movement: speech and movement normal Mood: congruent mood Affect: normal affect DS: Data Vitals/I&O Vitals and I&O: Vital Signs Temperature 37.7 C H 11/28/24 10:24 Temperature Source Temporal Artery Scan 11/28/24 10:24 Pulse 82 11/28/24 12:13 Pulse 83 11/28/24 12:13 Respiratory Rate 17 11/28/24 12:13 Respiratory Effort Normal, Non-Labored 11/26/24 18:22 Respiratory Depth Normal 11/26/24 18:22 Respiratory Pattern Normal 11/26/24 19:05 Blood Pressure 161/97 H 11/28/24 12:13 Blood Pressure Mean 115 11/28/24 12:13 Pulse Oximetry 95 11/28/24 12:13 Respiratory End-tidal CO2 11/26/24 17:10 Oxygen Delivery Method Room Air 11/28/24 04:10 Oxygen Flow Rate 0 11/28/24 04:10 End Tidal Co2 20 11/26/24 15:32 Pain Level 8 11/28/24 02:10 Intake & Output 11/27/24 11/28/24 11/28/24 23:59 11:59 23:59 Intake Total 3286.667 / 4628.6362 610 / 870 260 / 870 Output Total 950 / 2350 600 / 1000 400 / 1000 Balance 2336.667 / 2278.6362 10 / -130 -140 / -130 Weight 65.5 kg Intake: IV 1096.667 / 2198.6362 20 / 80 60 / 80 Oral 2190 / 2430 590 / 790 200 / 790 Output: Urine 150 / 1550 400 / 400 Stool 800 / 800 600 / 600 Other: Urine Color Straw Urine Appearance Clear Urine Odor None Comment Immeasurable- mixed w stool Stool Size Moderate Small Small Stool Characteristics Liquid Liquid Liquid Brown Brown Mucoid Brown Data Completed and Pending Labs on day of discharge: Labs from last 24 hours 11/28/24 11/28/24 11/26/24 12:35 05:30 18:30 WBC 8.23 RBC 4.07 L Hgb 12.6 L D Hct 38.0 L MCV 93 MCH 31.0 MCHC 33.2 RDW 13.6 Plt Count 123 L MPV 10.4 Immature Gran % 0.5 Neutrophils % 75.5 Lymphocytes % 14.3 Monocytes % 9.6 Eosinophils % 0.0 Basophils % 0.1 Nucleated RBC % 0.0 Absolute Neutrophils 6.21 Absolute Lymphocytes 1.18 L Absolute Monocytes 0.79 Absolute Eosinophils 0.00 Absolute Basophils 0.01 Sodium 134 L Potassium 3.7 D Chloride 98 Carbon Dioxide 25.2 Anion Gap 10.8 BUN 12 Creatinine 0.9 Est GFR (CKD-EPI 2020) 100.86 Glucose 91 Calcium 8.6 Magnesium 1.5 L Total Bilirubin 0.28 Conjugated Bilirubin 0.1 AST 138 H ALT 216 H Alkaline Phosphatase 106 Total Protein 6.3 L Albumin 2.8 L Stl C.difficile Tox PCR Pending Urine Legionella Ag Negative Preliminary micro results at discharge 11/26/24 15:58 Blood Culture - Preliminary Blood NO GROWTH 24 HOURS 11/26/24 15:50 Blood Culture - Preliminary Blood NO GROWTH 24 HOURS PFSH All Active Problems (Updated 11/28/24 @ 12:49 by Nasir Jimenez) Alcohol use disorder (Acute) Alcohol withdrawal (Acute) DVT prophylaxis (Acute) Elevated transaminase level (Acute) Hypokalemia (Acute) Hyponatremia (Acute) Pneumonia (Acute) Flu (Acute) Inguinal hernia of right side with obstruction (Acute) Surgical History Repair of inguinal hernia WITH BOWEL RESECTION;04/12 Hemicolectomy RIGHT 04/12 Family History Mother No problems noted. Father No problems noted. Grandfather No problems noted. Grandfather No problems noted. Grandmother No problems noted. Grandmother No problems noted. Social History Smoking/Tobacco Use Status: Current every day Tobacco Type: cigarettes Smoking risk assessment performed?: Yes Alcohol Intake: current Alcohol Intake frequency: 0-2 drinks per day Alcohol type: beer Drug use: Never Substance use type: does not use Housing: other Do you feel safe at home: Yes Do you feel safe in your relationship?: Yes Time Spent with Patient Time Spent with Patient: 45-69 minutes Time was spent: preparing to see the patient(eg.review tests), obtaining and/or reviewing separately otained hiistory, ordering medications,tests, procedures, referring, communicating with other health health care specialist, indepentently interpreting results, counseling the patient and care coordination
[2024-11-28 13:32] LABS: C Diff PCR Negative (Negative)
--- NOTE | 2024-11-28 13:51 | PDOC.CMDIS ---
Date of service: 11/28/24 Time of Service: 13:51 LACE Index Scoring Tool Questions: Length of Stay (in days): 2 Was the patient admitted via the E.D.?: Yes E.D. Visits: 1 Answers: Total Score: 6 Risk of Readmission: Low Risk Care Management Discharge Plan Reason for Hospitalization: flu, pneumonia Discharge Plan: Syed is discharged home today with no new services. He has been given a hospital f/u visit with Dr. Amezcua at [facility] for 12/14 at 1:30. Syed is aware of this appointment. Syed was also given resources for his desire to cut down on alcohol. Syed was also given the rack card for [facility] and was encouraged to call them [place] to get his medicaid application in process. He is aware that he has been referred to [facility]. Syed will transport home with his sister, who is very supportive, and continue per his plan of care. Patient/Family Education Needs: Review of discharge instructions, activity, limitations and discuss ask me 3. SDOH Health Related Social Needs: No Data to Display
== END 2024-11-28 14:05 | disposition home or self-care (01) | DRG 194 ==
LOC: ER 20:01 → ICU 20:23
PROVIDERS: Admitting Provider General Practice; Emergency Provider Emergency Medicine; Responsible Provider Family Medicine; Visit Provider General Practice
DX: J18.9 Pneumonia, unspecified organism (principal); E87.1 Hypo-osmolality and hyponatremia; J44.0 Chronic obstructive pulmonary disease with (acute) lower respiratory infection; F10.139 Alcohol abuse with withdrawal, unspecified; J10.1 Influenza due to other identified influenza virus with other respiratory manifestations; R74.01 Elevation of levels of liver transaminase levels; E87.6 Hypokalemia; F17.210 Nicotine dependence, cigarettes, uncomplicated; Z90.49 Acquired absence of other specified parts of digestive tract
CPT/HCPCS: 00123; 36415; 80048; 80053; 80076; 82805; 84145; 87040; 87449; 87493; 87637; 93005; 96361; 96365; 96367; 99285; J1650; 71046; 80320; 81003; 81015; 83605; 83735; 84450; 84460; 84484; 85025; 93010; 99223; 99233; 99239; J0456; J0696; J2560; J3475

== ENCOUNTER 2025-01-26 01:27 | Outpatient (CLI) | payer MEDICAID, SELFPAY ==
--- NOTE | 2025-01-26 07:15 | DI.RAD_ITS ---
Exam(s) XR CHEST 2V PA LATERAL EXAM: XR CHEST 2V PA LATERAL CLINICAL HISTORY: RLL pneumonia,j18.9 TECHNIQUE: 2D digital imaging was performed. Two views. COMPARISON: CR CHEST 2 VIEWS PA,LAT from 04/13/2017 CR,XR XR CHEST 2V PA LATERAL from 11/26/2024 FINDINGS: HEART: Normal size. Aorta: Not dilated. PULMONARY VASCULATURE: Normal. MEDIASTINUM: Unremarkable. LUNGS: Clear. Clearing of previously noted right lower lobe infiltrate. PLEURAL SPACE: No pleural effusion or pneumothorax. BONE:Unremarkable for age. SOFT TISSUES: Unremarkable. IMPRESSION: No acute abnormality. DATA REPOSITORY: RADIATION DOSE DELIVERED:
== END 2025-01-26 01:47 ==
LOC: DI 01:27
PROVIDERS: Visit Provider Emergency Medicine
DX: J18.9 Pneumonia, unspecified organism (principal)
CPT/HCPCS: 71046